=== PATIENT | male | born 1970 | race Hispanic/Latino ===

== ENCOUNTER → 2020-07-19 | Outpatient (CLI) | payer BC ==
--- NOTE | 2020-07-19 09:29 | Diagnostic Imaging Report ---
TECHNIQUE: Magnetic resonance imaging of the RIGHT KNEE was performed WITHOUT injected contrast. HISTORY: Right knee pain COMPARISON: None available. FINDINGS: LIGAMENTS AND TENDONS: ACL: Intact PCL: Intact Collateral ligaments: Intact Iliotibial band: Edema deep to the iliotibial band. Accessory band extending to the anterior horn lateral meniscus. Popliteal tendon: Intact Extensor mechanism: Intact JOINT: Menisci: Medial: Degenerative signal with horizontal tear involving the body. Lateral: Intact Articular Cartilage: Medial Compartment: Partial-thickness cartilage loss Lateral Compartment: No focal defect. Patellofemoral Compartment: No focal defect. Joint Fluid: The amount of fluid within the joint is within physiologic limits. BONE: No focal or infiltrative bone marrow replacing abnormality. No acute fracture. SOFT TISSUES: Otherwise, unremarkable. IMPRESSION: Medial meniscus degeneration with small horizontal tear involving the body with partial-thickness cartilage loss. 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 Signed by: Dr. Keny Simpson M.D. on 07/19/2020 9:26 AM
== END ==
LOC: MRI 07:50
PROVIDERS: ATTEND Specialist
DX: M22.2X1 Patellofemoral disorders, right knee (principal); M17.11 Unilateral primary osteoarthritis, right knee

== ENCOUNTER → 2020-09-02 | Day surgery (SDC) | payer BC ==
[~2020-09-02] MED LIST: BUPIVACAINE HCL 0.5% INJ 30 ML VIAL INJ ONE; CEFAZOLIN SOD 1 GM/NS 50ML 100 ML IV ONE; DEXAMETHASONE SOD PHOS INJ 4 MG/ML VIAL ONE; FENTANYL CITRATE/PF 100MCG/2 ML INJ ONE; KETOROLAC TROMETHAMINE 30 MG/ML VIAL ONE; LIDOCAINE HCL 2% LOCAL INJ 5 ML SDV VIAL INJ ONE; LISINOPRIL5 MG PO; MIDAZOLAM HCL 2 MG/2 ML VIAL ONE; ONDANSETRON HCL INJ 2MG/ML 2ML 2 MG/ML VIAL ONE; PROPOFOL IV EMULSION 10 MG/ML 20 ML VIAL ONE; SEVOFLURANE INHAL SOLN 250 ML PEN BTL ONE
[2020-09-02 13:35] VITALS: BP 142/95
--- NOTE | 2020-09-10 19:15 | Operative Report ---
DATE OF PROCEDURE: 09/02/2020 SURGEON: Pravin Bell MD PREOPERATIVE DIAGNOSES: Right knee medial meniscus tear and right knee degenerative joint disease. POSTOPERATIVE DIAGNOSIS: Right knee medial meniscus tear and right knee degenerative joint disease. OPERATION PROCEDURE PERFORMED: The patient underwent right knee examination under anesthesia, right knee arthroscopy, right knee partial medial meniscectomy, right knee chondroplasty of the medial femoral condyle, medial tibial plateau and lateral tibial plateau. RIB BENDER: None. ANESTHESIA: General endotracheal intubation anesthesia. IV FLUIDS: Per the anesthesia record. BRIEF DISCUSSION OF THE PATIENT'S OPERATIVE PROCEDURE: Mr. Valadez was taken to the operating room and placed in supine position on the operating room table. Following induction of general anesthesia as well as endotracheal intubation, the patient's right lower extremity was examined under anesthesia. He was found to have a mild effusion within the knee joint, but otherwise ligamentously stable knee. The patient's lower extremity was prepped and draped in standard surgical fashion. A two-port technique used to provide this patient arthroscopic evaluation of the knee joint. Examination of suprapatellar pouch and medial lateral gutters found no evidence of loose bodies. There was no significant evidence of chondromalacia patella and trochlear surfaces. Scope advanced in the medial compartment and the patient was found to have a macerated tear in the midportion of the body of the medial meniscus. There was also chondromalacia of the articular surfaces. A combination of biting forceps and a motorized shaver used to resect the torn portion of meniscus. Chondroplasties of the medial femoral condyle and medial tibial plateau performed at this time. Scope was then advanced to the intercondylar notch and the anterior cruciate ligament was identified and found to be intact. Scope was then advanced to the lateral compartment and there was chondromalacia of the lateral tibial plateau. Chondroplasties of the surface were performed. The knee was then deflated with sterile normal saline. The portal sites were closed using 4-0 nylon suture. The portal sites were injected with 0.5% Marcaine with epinephrine. Sterile dressings were applied. The patient was awakened and taken to postanesthesia care in stable condition. Pravin Bell MD EBR/MODL /[id number]
== END | disposition home or self-care (01) ==
LOC: OR 09:46
PROVIDERS: ATTEND Specialist
DX: S83.221A Peripheral tear of medial meniscus, current injury, right knee, initial encounter (principal); M17.11 Unilateral primary osteoarthritis, right knee; M94.261 Chondromalacia, right knee; I10 Essential (primary) hypertension; X58.XXXA Exposure to other specified factors, initial encounter; Z68.31 Body mass index [BMI] 31.0-31.9, adult
CPT/HCPCS: 29881; J0690; J1100; J1885; J2001; J2250; J2405; J2704; J3010; U0002